=== PATIENT | male | born 1955 | race Caucasian/White ===

== ENCOUNTER 2019-08-02 18:46 | Observation (INO) | payer BC, MEDICARE ==
[~2019-08-02 18:46] MED LIST: Iopamidol-370 76% 500 ML 1 ML ONE
[2019-08-02 19:28] LABS: #Basophils 0.1 thou/uL (0.0-0.2); #Eosinphils 0.1 thou/uL (0.0-0.7); #Lymphocytes 3.2 thou/uL (1.20-3.40); #Monocytes 0.8 thou/uL (0.11-0.59); #Neutrophils 6.6 thou/uL (1.40-6.50); %Basophils 1.1 % (0.0-1.0); %Eosinophils 1.1 % (0.0-10.0); %Lymphocytes 29.2 % (21.0-51.0); %Monocytes 7.5 % (0.0-10.0); %Neutrophils 61.1 % (42.0-75.0); Hemoglobin 12.9 g/dL (14.0-18.0); Mean Corpuscular HGB CONC 32.7 g/dL (32.0-36.0); Mean Corpuscular Hemoglobin 30.6 pg (27.0-31.0); Mean Corpuscular Volume 93.6 fL (78.0-98.0); Mean Platelet Volume 7.6 fL (7.4-10.4); Platelet Count 321 thou/uL (130-400); RBC Distribution Width 12.8 % (11.5-14.5); Red Blood Cell (RBC) Count 4.22 mill/uL (4.70-6.10); White Blood Cell (WBC) Count 10.8 thou/uL (4.8-10.8)
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
[2019-08-02 19:37] LABS: ALT (SGPT) 39 U/L (8-55); AST (SGOT) 42 U/L (5-34); Albumin 3.8 g/dL (3.4-4.8); Alkaline Phosphatase 59 U/L (40-110); Anion Gap 14 mmol/L (10-20); BUN (Urea Nitrogen) 9 mg/dL (8.4-25.7); Bilirubin, Total 0.3 mg/dL (0.2-1.2); Calc. Creatinine Clearance 0 mL/min (70-130); Calcium 8.6 mg/dL (7.8-10.44); Carbon Dioxide 22 mmol/L (23-31); Chloride 101 mmol/L (98-107); Estimated GFR-MDRD 76; Globulin 3.4 g/dL (2.4-3.5); Glucose 103 mg/dL (80-115); Potassium 3.6 mmol/L (3.5-5.1); Protein, Total 7.2 g/dL (5.8-8.1); Sodium 133 mmol/L (136-145)
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
[2019-08-02] MEDS ORDERED: Morphine 4 MG/ML VIAL ONE (19:59)
[2019-08-02] MEDS ORDERED: Ondansetron PF 4 MG/2 ML Vial ONE (20:04)
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
[2019-08-02] MEDS ORDERED: Fentanyl 100 MCG/2 ML VIAL ONE (21:13)
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
[2019-08-02] MEDS ORDERED: HYDROcodone/Acetaminophen 5/325 mg Tablet ONE (22:13)
[2019-08-02] MEDS ORDERED: Ondansetron ODT 4 MG TAB PO PRN (22:53)
[2019-08-02] MEDS ORDERED: traMADol HCl 50 MG TAB PO PRN ×2 (22:53)
[2019-08-02] MEDS ORDERED: hydrALAZINE 20 MG/ML VIAL SLOW IVP PRN (22:53)
[2019-08-02] MEDS ORDERED: Cyclobenzaprine 10 MG TAB PO PRN (22:53)
[2019-08-02] MEDS ORDERED: Dextrose 50% Abboject 50 ML SYRINGE SLOW IVP PRN (22:53)
[2019-08-02] MEDS ORDERED: Ketorolac Tromethamine 30 MG/ML VIAL IVP SCH (22:53)
[2019-08-02] MEDS ORDERED: Dextrose 5% in Water 1,000 ML IV PRN (22:53)
[2019-08-02] MEDS ORDERED: Ondansetron PF 4 MG/2 ML Vial IVP PRN (22:53)
[2019-08-02 23:07] VITALS: BMI 35.6
[2019-08-02] MEDS: Acetaminophen 325 MG TAB PO SCH (23:22)
[2019-08-02] MEDS: Ibuprofen 600 MG TAB PO SCH (23:29)
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
[2019-08-02] MEDS ORDERED: Famotidine 20 MG TAB PO SCH (23:45)
[2019-08-03] MEDS ORDERED: Lorazepam 1 MG TAB PO PRN (03:14)
[2019-08-03] MEDS: Acetaminophen 325 MG TAB PO SCH (05:02)
[2019-08-03] MEDS: Ibuprofen 600 MG TAB PO SCH ×2 (05:02→14:58)
[2019-08-03 05:38] LABS: #Lymphocytes 1.1 thou/uL (1.20-3.40); #Monocytes 0.6 thou/uL (0.11-0.59); %Basophils 0.4 % (0.0-1.0); %Eosinophils 0.2 % (0.0-10.0); %Lymphocytes 11.6 % (21.0-51.0); %Monocytes 6.3 % (0.0-10.0); %Neutrophils 81.5 % (42.0-75.0); Hemoglobin 11.7 g/dL (14.0-18.0); Mean Corpuscular HGB CONC 33.2 g/dL (32.0-36.0); Mean Corpuscular Hemoglobin 31.2 pg (27.0-31.0); Mean Corpuscular Volume 93.8 fL (78.0-98.0); Mean Platelet Volume 7.7 fL (7.4-10.4); Platelet Count 277 thou/uL (130-400); RBC Distribution Width 12.8 % (11.5-14.5); Red Blood Cell (RBC) Count 3.74 mill/uL (4.70-6.10); White Blood Cell (WBC) Count 9.8 thou/uL (4.8-10.8)
[2019-08-03 05:55] LABS: Anion Gap 14 mmol/L (10-20); BUN (Urea Nitrogen) 11 mg/dL (8.4-25.7); Calc. Creatinine Clearance 129 mL/min (70-130); Calcium 8.3 mg/dL (7.8-10.44); Carbon Dioxide 21 mmol/L (23-31); Chloride 101 mmol/L (98-107); Estimated GFR-MDRD 84; Glucose 113 mg/dL (80-115); Potassium 4.5 mmol/L (3.5-5.1); Sodium 131 mmol/L (136-145)
[2019-08-03] MEDS: traMADol HCl 50 MG TAB PO SCH ×2 (08:22→13:53)
[2019-08-03] MEDS: Gabapentin 300 MG CAP PO SCH ×2 (08:23→14:58)
[2019-08-03] MEDS ORDERED: Senokot S 8.6-50 MG TAB PO SCH (09:00)
[2019-08-03] MEDS ORDERED: Polyethylene Glycol 3350 17 GM Packet PO SCH (09:00)
[2019-08-03] MEDS ORDERED: Famotidine 20 MG TAB PO SCH (09:00)
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
[2019-08-03] MEDS ORDERED: TICAGRELOR 90 MG TABLET PO SCH ×2 (12:00→21:00)
[2019-08-03] MEDS ORDERED: Acetaminophen 325 MG TAB PO SCH (12:00)
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
[2019-08-03 15:05] VITALS: BP 139/87; TEMP 97.7
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
[2019-08-03] MEDS ORDERED: Atorvastatin Calcium 20 MG TAB PO SCH (21:00)
[2019-08-03] MEDS ORDERED: Montelukast Sodium 10 mg Tablet PO SCH (21:00)
[2019-08-04] MEDS ORDERED: Levothyroxine Sodium 25 MCG TAB PO SCH (06:00)
[2019-08-04] MEDS ORDERED: Citalopram 20 MG TAB PO SCH (09:00)
[2019-08-04] MEDS ORDERED: Lisinopril 20 MG TAB PO SCH (09:00)
[2019-08-04] MEDS ORDERED: busPIRone HCl 10 MG TAB PO SCH (09:00)
[2019-08-04] MEDS ORDERED: Amlodipine 10 MG TAB PO SCH (09:00)
== END 2019-08-03 16:15 | disposition home or self-care (01) ==
LOC: ERS 18:46 → SURG A 22:49 → INTOOBSV 22:49
PROVIDERS: ADMIT Specialist; ATTEND Specialist
DX: S12.120A Other displaced dens fracture, initial encounter for closed fracture (principal); S22.42XA Multiple fractures of ribs, left side, initial encounter for closed fracture; S00.81XA Abrasion of other part of head, initial encounter; S00.11XA Contusion of right eyelid and periocular area, initial encounter; S00.31XA Abrasion of nose, initial encounter; S00.03XA Contusion of scalp, initial encounter; S32.029A Unspecified fracture of second lumbar vertebra, initial encounter for closed fracture; S32.039A Unspecified fracture of third lumbar vertebra, initial encounter for closed fracture; S41.112A Laceration without foreign body of left upper arm, initial encounter; S41.111A Laceration without foreign body of right upper arm, initial encounter; S81.812A Laceration without foreign body, left lower leg, initial encounter; S81.811A Laceration without foreign body, right lower leg, initial encounter; S72.002A Fracture of unspecified part of neck of left femur, initial encounter for closed fracture; I10 Essential (primary) hypertension; I25.10 Atherosclerotic heart disease of native coronary artery without angina pectoris; M10.9 Gout, unspecified; E03.9 Hypothyroidism, unspecified; F41.9 Anxiety disorder, unspecified; Z79.02 Long term (current) use of antithrombotics/antiplatelets; Z79.899 Other long term (current) drug therapy; Z95.5 Presence of coronary angioplasty implant and graft; V69.9XXA Occupant (driver) (passenger) of heavy transport vehicle injured in unspecified traffic accident, initial encounter; Y92.411 Interstate highway as the place of occurrence of the external cause
CPT/HCPCS: 70450; 70486; 71045 ×2; 71260; 72125; 73552; 73564; 74177; 80048; 80053; 83605; 85025 ×2; 85610; 86850; 86900; 86901; 94640 ×2; 96361; 96374; 96375 ×2; 97116; 99285; G0378 ×2; 36415; J1885; J2270; J2405; J3010; J7620; Q9967

== ENCOUNTER 2019-08-16 11:52 | Outpatient (CLI) | payer MEDICARE ==
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
== END 2019-08-16 11:53 | disposition home or self-care (01) ==
LOC: BICRAD 11:52
PROVIDERS: ATTEND Physician Assistant
DX: S22.49XD Multiple fractures of ribs, unspecified side, subsequent encounter for fracture with routine healing (principal)
CPT/HCPCS: 71046

== ENCOUNTER 2019-09-01 15:10 | Outpatient (CLI) | payer MEDICARE ==
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
== END 2019-09-01 15:11 | disposition home or self-care (01) ==
LOC: SCSRAD 15:10
PROVIDERS: ATTEND Neurological Surgery
DX: S12.110A Anterior displaced Type II dens fracture, initial encounter for closed fracture (principal)
CPT/HCPCS: 72040